=== PATIENT | male | born 1960 | race Caucasian/White ===

== ENCOUNTER 2021-01-07 15:44 | Emergency (ER) | payer OTHER, SELFPAY ==
--- NOTE | 2021-01-07 16:00 | ECG_ITS ---
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/store/NU/[id number] f
--- NOTE | 2021-01-07 16:00 | XR_ITS ---
WS: [id number] XR chest 1V portable [id number] REASON FOR EXAM: chest pain FINDINGS: Moderate tortuosity of the thoracic aorta without aneurysmal dilatation. Normal heart size. Calcified granulomatous disease in both hemithoraces. No acute pulmonary parenchymal or pleural abnor mality. Moderate degenerative changes in the mid and lower thoracic spine. XR/XR chest 1V portable [id number] IMPRESSION: No acute chest abnormality.
[2021-01-07 16:36] VITALS: BMI 28.5
[2021-01-07 17:29] LABS: Basophils % 0.2 %; Eosinophils % 0.2 %; Hematocrit 24.3 % (42.0-52.0); Hemoglobin 7.6 g/dL (11.7-16.6); Lymphocytes % 22.2 %; Mean Corpuscular HGB Conc 31.3 g/dL (30.0-36.0); Mean Corpuscular Hemoglobin 26.9 pg (28.0-34.0); Mean Corpuscular Volume 85.9 fL (80-94); Mean Platelet Volume 11.4 fL (7.4-10.4); Monocytes # 0.8 10^3/uL (0.2-0.9); Monocytes % 17.1 %; Neutrophils # 2.75 10^3/uL (1.8-7.7); Neutrophils % 58.6 %; Nucleated Red Blood Cells # 0.1 /100WBC; Nucleated Red Blood Cells % 2.3 %; Platelet Count 252 10^3/cmm (130-400); Red Blood Count 2.83 10^6/uL (4.1-5.3); Red Cell Distribution Width 13.9 % (12.1-15.1); White Blood Count 4.7 10^3/uL (4.0-10.0)
[2021-01-07 17:41] LABS: Alanine Aminotransferase 34 U/L (0-41); Albumin Level 3.9 g/dL (3.5-5.2); Alkaline Phosphatase 94 IU/L (40-130); Anion Gap 18.5 (5-19); Aspartate Amino Transferase 38 U/L (0-40); Blood Urea Nitrogen 41 mg/dL (8-23); Calcium 8.3 mg/dL (8.5-10.5); Carbon Dioxide 23 mmol/L (22-29); Chloride 100 mmol/L (98-107); Creatinine Clr Calc Pharmacy 70.5513; Globulin 2.7 g/dL (1.3-4.6); Glomerular Filtration Rate 55.9 mL/min (90-130); Glucose 257 mg/dL (65-115); Osmolality Calculated 303 mOsm/kg (285-295); Potassium 4.5 mmol/L (3.5-5.1); Sodium 137 mmol/L (136-145); Total Bilirubin 0.5 mg/dL (0.15-1.2); Total Protein 6.6 g/dL (6.6-8.7)
--- NOTE | 2021-01-07 18:00 | ECG_ITS ---
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 Measurements Intervals [place] Rate: 97 P: 56 MN: 141 QRS: 43 QRSD: 113 T: -59 QT: 353 QTc: 450 Interpretive Statements SINUS RHYTHM WITH OCCASIONAL ECTOPIC PREMATURE COMPLEXES LATERAL MYOCARDIAL INFARCTION [40+ ms Q WAVE AND/OR ST/T ABNORMALITY IN I/aVL/V5/V6], OF INDETERMINATE AGE INFERIOR MYOCARDIAL INFARCTION [40+ ms Q WAVE AND/OR ST/T ABNORMALITY IN II/aVF], OF INDETERMINATE AGE Compared to ECG 01/07/2021 16:54:23 Short MN interval no longer present Myocardial infarct finding still present Electronically Signed On 01-11-2021 0:40:09 CDT by Cesia Batres M.D. [id number]
[2021-01-07 18:34] LABS: Troponin(5th) Baseline 2110 ng/L (0-15)
[2021-01-07 19:24] VITALS: BP 108/72; PULSE 101; RESP 15; O2SAT 99
--- NOTE | 2021-01-07 19:29 | CTR_ITS ---
PROCEDURE INFORMATION: Exam: CTA Chest With Contrast Exam date and time: 01/07/2021 7:29 PM Age: 60 years old Clinical indication: Shortness of breath; Additional info: Dyspnea, trop elevated TECHNIQUE: Imaging protocol: Computed tomographic angiography of the chest with contrast. 3D rendering (Not supervised by radiologist): MIP and/or 3D reconstructed images were created by the technologist. Radiation optimization: All CT scans at this facility use at least one of these dose optimization techniques: automated exposure control; mA and/or kV adjustment per patient size (includes targeted exams where dose is matched to clinical indication); or iterative reconstruction. Contrast material: VISI 320; Contrast volume: 76 ml; Contrast route: INTRAVENOUS (IV); COMPARISON: CR XR chest 1V portable [id number] 01/07/2021 4:02 PM RADIATION DOSE METRICS: Total DLP (mGy-cm): 1163.27 FINDINGS: Pulmonary arteries: Normal. No pulmonary emboli. Aorta: Unremarkable. No aortic aneurysm. No aortic dissection. Lungs: Unremarkable. No consolidation. No masses. Pleural spaces: Moderate bilateral pleural effusions. Heart: Cardiomegaly. Coronary artery atherosclerotic calcifications. Lymph nodes: Unremarkable. No enlarged lymph nodes. Spleen: Splenic calcified granulomas partially visualized. Intraperitoneal space: Small amount of ascites seen in the upper abdomen. Bones/joints: Unremarkable. No acute fracture. Soft tissues: Unremarkable. CT/CT angio chest PE protcl [id number] IMPRESSION: 1. Negative for pulmonary embolus. 2. Moderate bilateral pleural effusions. 3. Cardiomegaly. 4. Coronary artery atherosclerotic calcifications. 5. Small amount of ascites seen in the upper abdomen. 6. Splenic calcified granulomas partially visualized. Radiation Dose CTDIVOL = (mGy): DLP = 1163.27 (mGy-cm)
[2021-01-07] MEDS: heparin 5,000 unit/mL INJ 1 mL 4000 UNIT IVP (19:38)
[2021-01-07] MEDS: iodixanol 320 mg/mL 100mL Btl IV (19:49)
[2021-01-07 20:00] LABS: D Dimer 3.19 ug/mIFEU (0-0.59)
[2021-01-07] MEDS: clopidogrel 300 mg Tablet PO (20:00)
[2021-01-07] MEDS: aspirin 81 mg Chew Tablet 324 MG PO (20:00)
[2021-01-07 20:14] LABS: NT Pro B Type Natriuretic Pept 11404 pg/mL (0-125)
[2021-01-07 20:33] LABS: SARS Covid-2 Antigen Negative (Negative)
[2021-01-07 20:38] LABS: Troponin 5 2HR 2152 ng/L (0-15); Troponin 5 2HR Delta 42 ABS# (0-10)
[2021-01-07] MEDS: FUROsemide 10 mg/mL SDV 4mL 20 MG IVP (20:50)
[2021-01-07] MEDS: heparin drip 25,000 UNIT/500 ML PREMIX 27 UNIT IV (21:38)
[2021-01-07 21:52] VITALS: BP 115/73; PULSE 98; RESP 15; O2SAT 97
--- NOTE | 2021-01-07 22:00 | ECG_ITS ---
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 Measurements Intervals [place] Rate: 99 P: 62 DC: 147 QRS: 46 QRSD: 112 T: -71 QT: 348 QTc: 447 Interpretive Statements SINUS RHYTHM WITH OCCASIONAL ECTOPIC PREMATURE COMPLEXES PROBABLE LATERAL MYOCARDIAL INFARCTION [35 ms Q WAVE IN I/aVL/V5/V6], OF INDETERMINATE AGE INFERIOR MYOCARDIAL INFARCTION [40+ ms Q WAVE AND/OR ST/T ABNORMALITY IN II/aVF], OF INDETERMINATE AGE Compared to ECG 01/07/2021 19:05:06 No significant changes Electronically Signed On 01-11-2021 0:39:34 CDT by Cesia Batres M.D. [id number]
--- NOTE | 2021-01-07 22:19 | ED_ITS ---
HPI - SOB/Dyspnea General: Chief Complaint: Shortness of Breath/Dyspnea Stated Complaint: CP, SOB - SENT BY DR BURNETT Time Seen by Provider: 01/07/21 18:39 History of Present Illness: HPI Narrative: The patient is a 60-year-old male with past medical history diabetes and no cardiac history. He had a significant weight in the waiting room due to the increase in Covid volume. Labs in the waiting room showed initial troponin 2110 and he was placed in a room. The patient is a 60-year-old male with diabetes who comes to the ER complaining of shortness of breath on exertion. He says for the past 4 days he has been having shortness of breath on exertion and pain in his neck, left shoulder, and left arm. He denies any chest pain heaviness, squeezing, tightness, heartburn at all. He says he thinks 4 days ago he might of had some kind of a heartburn feel ing but other than that nothing in his chest. EKG shows sinus rhythm with no ST changes. Likely NSTEMI. He denies any previous cardiac history. MD elicited complaint: shortness of breath Pertinent past history: diabetes Onset (ago): day(s) (4) Context: occurred during exertion Timing: intermittent Severity: moderate Exacerbating factors: exertion Relieving factors: rest Known history of: diabetes Associated symptoms: Reports no associated symptoms; Deny abdominal pain, chest pain, dizziness, extremity pain, orthopnea, palpitations or polyuria Review of Systems General: Reports: 10 or more systems reviewed and unremarkable except in HPI and below Const: Denies: fatigue Eyes: Denies: change in vision, blurry vision or eye redness ENMT: Denies: throat pain, swelling of lips/tongue, ear or mastoid pain or nasal congestion Card: Denies: chest pain, palpitations, irregular heart rhythm, edema, dyspnea on exertion or orthopnea Resp: Reports: other (Dyspnea on exertion); Denies: dyspnea, productive cough or non-productive cough GI: Denies: abdominal pain, diarrhea or GI cramping : Denies: flank pain, urinary frequency or urinary urgency Musc: Denies: neck pain, back pain, extremity pain, joint pain, joint redness, limited range of motion or muscle weakness Skin/Breast: Denies: rash, pruritus, erythema, skin pain or skin tenderness Neuro: Denies: headache(s), numbness in extremities, weakness in extremities, sensory changes, difficulty walking, dizziness, confusion or Slurred speech present Psych: Denies: anxiety or depression Endo: Denies: polyuria All/Imm: Denies: urticaria, throat swelling or tongue swelling Physical Exam Const: COMMON NORMALS: no acute distress, average body habitus, patient oriented x3, no limitations, healthy appearing, alert and well nourished GENERAL APPEARANCE: cooperative, comfortable, well kempt and well developed ORIENTATION/CONSCIOUSNESS: Yes awake, Yes oriented to person, Yes oriented to place and Yes oriented to time HENMT: COMMON NORMALS: normocephalic, external ears normal and Normal external nose present HEAD & SCALP: normal to inspection and normocephalic NOSE: Normal external nose present EXTERNAL EAR: Yes external ears normal MOUTH: Normal oral and palatal mucosa present THROAT: posterior oropharynx normal Eye: COMMON NORMALS: Equal, round and reactive pupils present and EOMs intact bilaterally GENERAL EYE: appearance normal, both eyes and all related structures PUPIL: Yes Equal, round and reactive pupils present Neck/C-Spine: COMMON NORMALS: full ROM, no lymphadenopathy, no meningeal signs and no JVD GENERAL: Yes normal visual inspection Lymph: LYMPHATIC: no lymphadenopathy noted Chest: COMMONS NORMALS: normal inspection of the chest and normal palpation of entire chest wall Resp: COMMON NORMALS: normal respiratory effort, No retractions, No use of accessory muscles, clear to auscultation bilaterally and percussion normal EFFORT & INSPECTION: Yes able to speak in complete sentences AUSCULTATION: clear to auscultation bilaterally PERCUSSION: percussion normal Cardio: COMMON NORMALS: no JVD, regular rate, regular rhythm, S1 normal heart sound present, S2 normal heart sound present and Peripheral pulses 2+ throughout RATE: regular rate RHYTHM: regular rhythm HEART SOUNDS: S1 normal heart sound present and S2 normal heart sound present PERIPHERAL PULSES: Peripheral pulses 2+ throughout GI: COMMON NORMALS: Normal to inspection, nondistended, normoactive bowel sounds present, Soft to palpation, non-tender and no masses INSPECTION: Yes normal to inspection PALPATION: Yes Soft to palpation : COMMON NORMALS: Yes no CVA tenderness BLADDER/KIDNEY EXAM: Yes no CVA tenderness Back/Pelvis: COMMON NORMALS: no CVA tenderness, thoracic and lumbar spine normal to inspection, no thoracic nor lumbar tenderness and thoraco-lumbar ROM normal Extremity: COMMON NORMALS: normal to inspection, full ROM, capillary refill normal, no joint enlargement and no pedal edema GENERAL: Yes normal exam except as noted Neuro: COMMON NORMALS: patient oriented x3, CN's II-XII intact bilaterally, moves all extremities, no focal motor deficits, no sensory deficits noted and gait normal SENSORIUM/ORIENTATION: Yes alert, Yes oriented to person, Yes oriented to place and Yes oriented to time MENINGEAL SIGNS: Yes no meningeal signs Psych: COMMON NORMALS: mental status grossly normal, Normal thought process present, cooperative, normal affect and speech normal APPEARANCE: Yes well kempt ATTITUDE: Yes calm SPEECH: Yes normal speech THOUGHT PROCESS: Normal thought process present Skin: COMMON NORMALS: no rashes or lesions noted GENERAL SKIN EXAM: no rashes or lesions noted Course Vital Signs: Vital signs: Vital Signs Pulse Rate 98 01/07/21 21:52 Respiratory Rate 15 01/07/21 21:52 Blood Pressure 115/73 01/07/21 21:52 Pulse Oximetry 97 01/07/21 21:52 MDM - SOB/Dyspnea MDM Narrative: Medical decision making narrative: Patient comes to the ER complaining of exertional dyspnea. He denies chest pain in the ER and for the past few days however his troponin is elevated to 2110. EKG shows no ST wave changes. 2-hour troponin 44637. Again no ST changes on the EKG at that time. Discussed with Dr. Olivarez who recommended aspirin, Plavix 300, heparin bolus and drip which was administered. Discussed with Dr. Larose who does not accept because we do not have any CSU beds. Attempting to transfer now. Discussed with Dr. Car cardiology at [facility] who accepts to his service. Pt stable for transfer and has no chest pain. Lab Data: Labs: Lab Results 01/07/21 01/07/21 01/07/21 Range/Units 17:10 17:10 17:10 WBC 4.7 (4.0-10.0) 10^3/ uL RBC 2.83 L (4.1-5.3) 10^6/u L Hgb 7.6 L (11.7-16.6) g/dL Hct 24.3 L (42.0-52.0) % MCV 85.9 (80-94) fL MCH 26.9 L (28.0-34.0) pg MCHC 31.3 (30.0-36.0) g/dL RDW 13.9 (12.1-15.1) % Plt Count 252 (130-400) 10^3/c mm MPV 11.4 H (7.4-10.4) fL Neut % (Auto) 58.6 % Lymph % (Auto) 22.2 % [place] % (Auto) 17.1 % Eos % (Auto) 0.2 % Baso % (Auto) 0.2 % Neut # (Auto) 2.75 (1.8-7.7) 10^3/u L Lymph # (Auto) 1.0 (0.8-4.8) 10^3/u L [place] # (Auto) 0.8 (0.2-0.9) 10^3/u L Eos # (Auto) 0.0 (0.0-0.8) 10^3/u L Baso # (Auto) 0.0 (0.0-0.1) 10^3/u L Nucleated RBC % (a uto) 2.3 % Nucleated RBCs # 0.1 /100WBC D-Dimer (0-0.59) ug/mIFE U Sodium 137 (136-145) mmol/L Potassium 4.5 (3.5-5.1) mmol/L Chloride 100 (98-107) mmol/L Carbon Dioxide 23 (22-29) mmol/L Anion Gap 18.5 (5-19) BUN 41 H (8-23) mg/dL Creatinine 1.3 H (0.7-1.2) mg/dL GFR Calculation 55.9 L (90-130) mL/min Glucose 257 H (65-115) mg/dL Calculated Osmolal ity 303 H (285-295) mOsm/k g Calcium 8.3 L (8.5-10.5) mg/dL Total Bilirubin 0.5 (0.15-1.2) mg/dL AST 38 (0-40) U/L ALT 34 (0-41) U/L Alkaline Phosphata se 94 (40-130) IU/L Troponin T Baselin e 2110 H* (0-15) ng/L Troponin T 120 Min cocopah (0-15) ng/L Delta Troponin T (0-10) ABS# NT-Pro-B Natriuret Pep (0-125) pg/mL Total Protein 6.6 (6.6-8.7) g/dL Albumin 3.9 (3.5-5.2) g/dL Globulin 2.7 (1.3-4.6) g/dL SARS-CoV-2 Ag (Rap id) (Negative) Blood Type Rho(D) Type Antibody Screen 01/07/21 01/07/21 01/07/21 Range/Units 17:10 19:20 19:40 WBC (4.0-10.0) 10^3/ uL RBC (4.1-5.3) 10^6/u L Hgb (11.7-16.6) g/dL Hct (42.0-52.0) % MCV (80-94) fL MCH (28.0-34.0) pg MCHC (30.0-36.0) g/dL RDW (12.1-15.1) % Plt Count (130-400) 10^3/c mm MPV (7.4-10.4) fL Neut % (Auto) % Lymph % (Auto) % [place] % (Auto) % Eos % (Auto) % Baso % (Auto) % Neut # (Auto) (1.8-7.7) 10^3/u L Lymph # (Auto) (0.8-4.8) 10^3/u L [place] # (Auto) (0.2-0.9) 10^3/u L Eos # (Auto) (0.0-0.8) 10^3/u L Baso # (Auto) (0.0-0.1) 10^3/u L Nucleated RBC % (a uto) % Nucleated RBCs # /100WBC D-Dimer 3.19 H (0-0.59) ug/mIFE U Sodium (136-145) mmol/L Potassium (3.5-5.1) mmol/L Chloride (98-107) mmol/L Carbon Dioxide (22-29) mmol/L Anion Gap (5-19) BUN (8-23) mg/dL Creatinine (0.7-1.2) mg/dL GFR Calculation (90-130) mL/min Glucose (65-115) mg/dL Calculated Osmolal ity (285-295) mOsm/k g Calcium (8.5-10.5) mg/dL Total Bilirubin (0.15-1.2) mg/dL AST (0-40) U/L ALT (0-41) U/L Alkaline Phosphata se (40-130) IU/L Troponin T Baselin e (0-15) ng/L Troponin T 120 Min cocopah 2152 H (0-15) ng/L Delta Troponin T 42 H* (0-10) ABS# NT-Pro-B Natriuret Pep 88515 H (0-125) pg/mL Total Protein (6.6-8.7) g/dL Albumin (3.5-5.2) g/dL Globulin (1.3-4.6) g/dL SARS-CoV-2 Ag (Rap id) (Negative) Blood Type Rho(D) Type Antibody Screen 01/07/21 01/07/21 Range/Units 19:40 20:00 WBC (4.0-10.0) 10^3/ uL RBC (4.1-5.3) 10^6/u L Hgb (11.7-16.6) g/dL Hct (42.0-52.0) % MCV (80-94) fL MCH (28.0-34.0) pg MCHC (30.0-36.0) g/dL RDW (12.1-15.1) % Plt Count (130-400) 10^3/c mm MPV (7.4-10.4) fL Neut % (Auto) % Lymph % (Auto) % [place] % (Auto) % Eos % (Auto) % Baso % (Auto) % Neut # (Auto) (1.8-7.7) 10^3/u L Lymph # (Auto) (0.8-4.8) 10^3/u L [place] # (Auto) (0.2-0.9) 10^3/u L Eos # (Auto) (0.0-0.8) 10^3/u L Baso # (Auto) (0.0-0.1) 10^3/u L Nucleated RBC % (a uto) % Nucleated RBCs # /100WBC D-Dimer (0-0.59) ug/mIFE U Sodium (136-145) mmol/L Potassium (3.5-5.1) mmol/L Chloride (98-107) mmol/L Carbon Dioxide (22-29) mmol/L Anion Gap (5-19) BUN (8-23) mg/dL Creatinine (0.7-1.2) mg/dL GFR Calculation (90-130) mL/min Glucose (65-115) mg/dL Calculated Osmolal ity (285-295) mOsm/k g Calcium (8.5-10.5) mg/dL Total Bilirubin (0.15-1.2) mg/dL AST (0-40) U/L ALT (0-41) U/L Alkaline Phosphata se (40-130) IU/L Troponin T Baselin e (0-15) ng/L Troponin T 120 Min cocopah (0-15) ng/L Delta Troponin T (0-10) ABS# NT-Pro-B Natriuret Pep (0-125) pg/mL Total Protein (6.6-8.7) g/dL Albumin (3.5-5.2) g/dL Globulin (1.3-4.6) g/dL SARS-CoV-2 Ag (Rap id) Negative (Negative) Blood Type A Negative Rho(D) Type Negative / 0 Antibody Screen Negative Discharge Plan Discharge Clinical Impression: Non-ST elevation SD (NSTEMI) Condition: Stable Prescriptions: No Action Aspir-81 81 mg Tablet,Delayed Release (Dr/Ec) 81 mg PO DAILY RF: 0 simvastatin 20 mg tablet 20 mg PO DAILY RF: 0 metformin 1,000 mg tablet 1,000 mg PO BID RF: 0 glipizide 5 mg tablet 5 mg PO DAILY RF: 0 Referrals: Ilda Burnett [Primary Care Provider] - Coding Level of Care Code ED Chief Writer for [employer] Fwd Exam Comprehensive
[2021-01-07 22:40] VITALS: BP 98/71; PULSE 93; RESP 19; O2SAT 97
[2021-01-08 00:26] VITALS: BP 106/68; PULSE 90; RESP 21; O2SAT 96
[2021-01-08 00:53] LABS: Troponin 5 6HR 2304 ng/L (0-15); Troponin 5 6HR Delta 152 ng/L (0-12)
[2021-01-08 01:54] VITALS: BP 96/71; PULSE 98; RESP 23; O2SAT 98
[2021-01-08 03:17] VITALS: BP 96/67; PULSE 102; RESP 18; O2SAT 99
[2021-01-08 03:41] VITALS: BP 96/67; PULSE 101; RESP 23; O2SAT 97
[2021-01-08 03:59] LABS: Partial Thromboplastin Time 59.9 SECONDS (23.9-36.7)
[2021-01-08 04:53] VITALS: BP 94/64; PULSE 100; O2SAT 98
== END 2021-01-08 04:55 ==
PROVIDERS: Emergency Medicine; Physician Assistant; Emergency Provider Family Medicine; PCP Nurse Practitioner Family
DX: I21.4 Non-ST elevation (NSTEMI) myocardial infarction (principal); E11.9 Type 2 diabetes mellitus without complications; Z79.82 Long term (current) use of aspirin; Z79.84 Long term (current) use of oral hypoglycemic drugs
CPT/HCPCS: 36415; 71045; 71275; 80053; 83880; 84484; 85025; 85378; 85730; 86850; 86900; 87426; 93005; 96365; 96366; 96375; 99285; J1644; J1940; Q9967

== ENCOUNTER 2021-03-22 07:40 | Inpatient (IN) | payer OTHER, SELFPAY ==
[2021-03-22] VITALS (32 sets, daily range): BP systolic 72–112; BP diastolic 49–74; PULSE 75–124; RESP 8–27; TEMP 36.4–36.7; O2SAT 79–100; BMI 27.8
--- NOTE | 2021-03-22 07:50 | XR_ITS ---
WS: [id number] PORTABLE CHEST HISTORY: dyspnea/cough COMPARISON: 01/07/2021 Lordotic rotated positioning of the thorax. Mediastinum appears wide but this is due to positioning. Lungs are clear. No pleural effusion or pneumothorax. Cardiac size: Normal. Mediastinum/Aorta: Normal mediastinum. No osseous abnormality seen. XR/XR chest 1V portable [id number] IMPRESSION: Unremarkable portable chest.
--- NOTE | 2021-03-22 07:50 | ECG_ITS ---
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 Measurements Intervals [place] Rate: 72 P: 52 [place]: 158 QRS: 42 QRSD: 116 T: 167 QT: 404 QTc: 445 Interpretive Statements SINUS RHYTHM INFERIOR MYOCARDIAL INFARCTION , PROBABLY OLD [40+ ms Q WAVE AND/OR ST/T ABNORMALITY IN II/aVF] ANTEROLATERAL MYOCARDIAL INFARCTION , OF INDETERMINATE AGE [40+ ms Q WAVE IN I/aVL/V3-V6] Compared to ECG 01/07/2021 22:00:57 No significant changes Electronically Signed On 03-22-2021 14:24:14 CDT by Allan Medina M.D. [id number]
--- NOTE | 2021-03-22 08:08 | ED_ITS ---
HPI - SOB/Dyspnea General: Chief Complaint: Shortness of Breath/Dyspnea Stated Complaint: SOB when laying down Time Seen by Provider: 03/22/21 07:44 History of Present Illness: HPI Narrative: 61-year-old male presents emergency room complaining of orthopnea as well as shortness of breath with nearly any level of exertion. Patient has a known ischemic cardiomyopathy with an ejection fraction he was told around 15%. He had an NSTEMI earlier this year was tr ansferred to another facility due to lack of available beds here. He sees a access services representative in [place] and they are considering transplant. He is not had any chest pain. He is not really noticed any swelling of his extremities. Patient does have a LifeVest on. He has not seen a access services representative locally. MD elicited complaint: shortness of breath Pertinent past history: congestive heart failure (Ischemic cardiomyopathy) Onset (ago): day(s) Context: occurred during exertion Timing: intermittent Severity: moderate Exacerbating factors: lying flat, exertion and movement Relieving factors: rest and upright position Known history of: congestive heart failure Associated symptoms: Deny abdominal pain, chest congestion, chest pain, cough, diaphoresis, dizziness, extremity pain, fever(s), hemoptysis, lightheadedness, myalgias, nausea, orthopnea, palpitations, paresthesias, polydipsia, polyuria, rash, sense of impending doom, syncope, vomiting or other Treatment prior to arrival: none Review of Systems Const: Denies: fever(s) or diaphoresis Card: Denies: chest pain, palpitations, lightheadedness, syncope or orthopnea Resp: Denies: hemoptysis or chest congestion GI: Denies: abdominal pain, nausea or vomiting Musc: Denies: extremity pain Neuro: Denies: dizziness Endo: Denies: polyuria or polydipsia PFS ED PFSH: Medical History (Updated 03/27/21 @ 14:13 by Michael Frye DO) Amputated toe of right foot CAD (coronary artery disease) CHF exacerbation Diabetes mellitus Hyperlipidemia Ischemic cardiomyopathy Surgical History (Updated 03/22/21 @ 17:39 by Cesia Batres MD) H/O umbilical hernia repair History of appendectomy S/P LASIK surgery of both eyes Family History (Updated 03/22/21 @ 17:41 by Cesia Batres MD) Mother Hypertension Social History (Updated 03/22/21 @ 17:40 by Cesia Batres MD) Smoking and tobacco status: never smoked Alcohol intake: never Household members: spouse Marital status: Physical Exam Const: COMMON NORMALS: no acute distress GENERAL APPEARANCE: cooperative and comfortable ORIENTATION/CONSCIOUSNESS: Yes awake, Yes oriented to person, Yes oriented to place and Yes oriented to time HENMT: COMMON NORMALS: normocephalic, atraumatic and hearing grossly normal bilaterally HEAD & SCALP: normocephalic and atraumatic Neck/C-Spine: COMMON NORMALS: no JVD Lymph: LYMPHATIC: no lymphadenopathy noted and no lymphedema noted Resp: EFFORT & INSPECTION: Yes uses accessory muscles AUSCULTATION: crackles and diminished lung sounds Cardio: COMMON NORMALS: no JVD, regular rate, regular rhythm and No murmurs present (Cardio) RATE: regular rate RHYTHM: regular rhythm GI: COMMON NORMALS: Soft to palpation and No hepatosplenomegaly present AUSCULTATION: Yes normoactive bowel sounds PALPATION: Yes Soft to palpation, No Tenderness to palpation present (GI), No Guarding due to palpation present (GI) and Yes No hepatosplenomegaly present Extremity: GENERAL: Yes edema (trace) Neuro: SENSORIUM/ORIENTATION: Yes oriented to person, Yes oriented to place and Yes oriented to time Skin: COMMON NORMALS: no rashes or lesions noted GENERAL SKIN EXAM: no rashes or lesions noted Course Vital Signs: Vital signs: Vital Signs Temperature 97.8 F 03/23/21 20:00 Pulse Rate 104 H 03/23/21 20:00 Respiratory Rate 16 03/23/21 20:00 Blood Pressure 97/65 03/23/21 20:00 Pulse Oximetry 97 03/23/21 19:45 MDM - SOB/Dyspnea MDM Narrative: Medical decision making narrative: Patient has significant congestive heart failure with a skin history of ischemic cardiomyopathy see he also has an acute kidney injury discussed with hospitalist will go admit orders written to the ICU. Lab Data: Labs: Lab Results 03/22/21 03/22/21 03/22/21 08:20 08:20 08:20 WBC 7.9 10^3/uL 10^3/ uL (4.0-10.0) RBC 4.24 10^6/uL 10^6 /uL (4.1-5.3) Hgb 12.2 g/dL g/dL (11.7-16.6) Hct 39.2 % L % (42.0-52.0) MCV 92.5 fl fl (80-94) MCH 28.8 pg pg (28.0-34.0) MCHC 31.1 g/dL g/dL (30.0-36.0) RDW 15.9 % H % (12.1-15.1) Plt Count 192 10^3/cmm 10^3 /cmm (130-400) MPV 11.1 fL H fL (7.4-10.4) Neut % (Auto) 73.0 % % Lymph % (Auto) 16.3 % % [place] % (Auto) 8.6 % % Eos % (Auto) 0.5 % % Baso % (Auto) 0.6 % % Neut # (Auto) 5.74 10^3/uL 10^3 /uL (1.8-7.7) Lymph # (Auto) 1.3 10^3/uL 10^3/ uL (0.8-4.8) [place] # (Auto) 0.7 10^3/uL 10^3/ uL (0.2-0.9) Eos # (Auto) 0.0 10^3/uL 10^3/ uL (0.0-0.8) Baso # (Auto) 0.1 10^3/uL 10^3/ uL (0.0-0.1) Nucleated RBC % (a uto) 0 % % Nucleated RBCs # 0.0 /100WBC /100W BC Sodium 137 mmol/L mmol/L (136-145) Potassium 5.2 mmol/L H mmol /L (3.5-5.1) Chloride 96 mmol/L L mmol/ L (98-107) Carbon Dioxide 24 mmol/L mmol/L (22-29) Anion Gap 22.2 H (5-19) BUN 55 mg/dL H mg/dL (8-23) Creatinine 3.4 mg/dL H mg/dL (0.7-1.2) GFR Calculation 18.4 mL/min L mL/ min (90-130) Glucose 159 mg/dL H mg/dL (65-115) Calculated Osmolal ity 302 mOsm/kg H mOs m/kg (285-295) Calcium 9.7 mg/dL mg/dL (8.5-10.5) Total Bilirubin 0.5 mg/dL mg/dL (0.15-1.2) AST 16 U/L U/L (0-40) ALT 9 U/L U/L (0-41) Alkaline Phosphata se 95 IU/L IU/L (40-130) Troponin T Baselin e 4125 ng/L H* ng/L (0-15) Troponin T 120 Min rosebud Delta Troponin T Troponin T Hi Sens 6Hr Troponin T Hi Sens 6Hr Delta NT-Pro-B Natriuret Pep 67988 pg/mL H pg/ mL (0-125) Total Protein 7.3 g/dL g/dL (6.6-8.7) Albumin 4.5 g/dL g/dL (3.5-5.2) Globulin 2.8 g/dL g/dL (1.3-4.6) Procalcitonin 03/22/21 03/22/21 03/22/21 10:27 14:22 14:22 WBC RBC Hgb Hct MCV MCH MCHC RDW Plt Count MPV Neut % (Auto) Lymph % (Auto) [place] % (Auto) Eos % (Auto) Baso % (Auto) Neut # (Auto) Lymph # (Auto) [place] # (Auto) Eos # (Auto) Baso # (Auto) Nucleated RBC % (a uto) Nucleated RBCs # Sodium Potassium Chloride Carbon Dioxide Anion Gap BUN Creatinine GFR Calculation Glucose Calculated Osmolal ity Calcium Total Bilirubin AST ALT Alkaline Phosphata se Troponin T Baselin e Troponin T 120 Min rosebud 3042 ng/L H ng/L (0-15) Delta Troponin T -1083 ABS# L ABS# (0-10) Troponin T Hi Sens 6Hr 3107 ng/L H ng/L (0-15) Troponin T Hi Sens 6Hr Delta -1018 ng/L L ng/L (0-12) NT-Pro-B Natriuret Pep Total Protein Albumin Globulin Procalcitonin 0.11 ng/mL ng/mL (0-0.5) Discharge Plan Discharge Patient Disposition: Admitted As Inpatient Admit Provider: Berkley Ruano Clinical Impression: Ischemic cardiomyopathy, TJ (acute kidney injury), CHF exacerbation, CAD (coronary artery disease), Diabetes mellitus Condition: Stable Discharge Diet: Cardiac Discharge Activity: Bedrest Coding Level of Care Code ED Engineering Aide for David Rascon
[2021-03-22 08:38] LABS: Basophils # 0.1 10^3/uL (0.0-0.1); Basophils % 0.6 %; Eosinophils % 0.5 %; Hematocrit 39.2 % (42.0-52.0); Hemoglobin 12.2 g/dL (11.7-16.6); Lymphocytes # 1.3 10^3/uL (0.8-4.8); Lymphocytes % 16.3 %; Mean Corpuscular HGB Conc 31.1 g/dL (30.0-36.0); Mean Corpuscular Hemoglobin 28.8 pg (28.0-34.0); Mean Corpuscular Volume 92.5 fl (80-94); Mean Platelet Volume 11.1 fL (7.4-10.4); Monocytes # 0.7 10^3/uL (0.2-0.9); Monocytes % 8.6 %; Neutrophils # 5.74 10^3/uL (1.8-7.7); Nucleated Red Blood Cells % 0 %; Platelet Count 192 10^3/cmm (130-400); Red Blood Count 4.24 10^6/uL (4.1-5.3); Red Cell Distribution Width 15.9 % (12.1-15.1); White Blood Count 7.9 10^3/uL (4.0-10.0)
--- NOTE | 2021-03-22 08:38 | PC.NURSE ---
Patient placed on cardiac monitoring upon arrival in room.
[2021-03-22 09:16] LABS: Troponin(5th) Baseline 4125 ng/L (0-15)
[2021-03-22 09:27] LABS: Alanine Aminotransferase 9 U/L (0-41); Albumin Level 4.5 g/dL (3.5-5.2); Alkaline Phosphatase 95 IU/L (40-130); Anion Gap 22.2 (5-19); Aspartate Amino Transferase 16 U/L (0-40); Blood Urea Nitrogen 55 mg/dL (8-23); Calcium 9.7 mg/dL (8.5-10.5); Carbon Dioxide 24 mmol/L (22-29); Chloride 96 mmol/L (98-107); Creatinine Clr Calc Pharmacy 26.3443; Globulin 2.8 g/dL (1.3-4.6); Glomerular Filtration Rate 18.4 mL/min (90-130); Glucose 159 mg/dL (65-115); Osmolality Calculated 302 mOsm/kg (285-295); Potassium 5.2 mmol/L (3.5-5.1); Sodium 137 mmol/L (136-145); Total Bilirubin 0.5 mg/dL (0.15-1.2); Total Protein 7.3 g/dL (6.6-8.7)
[2021-03-22] MEDS: aspirin 81 mg Chew Tablet 324 MG PO (09:35)
--- NOTE | 2021-03-22 09:50 | ECG_ITS ---
[facility] Test Date: 2021-03-22 Pat Name: Luis M Browne Department: Room: Gender: Male In House Counsel: : 1960 Requested By: Michael Alba Order Number: [id number] Thu MD: Allan Medina M.D. Measurements Intervals [place] Rate: 80 P: 55 MN: 152 QRS: 52 QRSD: 120 T: 202 QT: 390 QTc: 453 Interpretive Statements SINUS RHYTHM INFERIOR MYOCARDIAL INFARCTION , OF INDETERMINATE AGE [40+ ms Q WAVE AND/OR ST/T ABNORMALITY IN II/aVF] ANTEROLATERAL MYOCARDIAL INFARCTION , OF INDETERMINATE AGE [40+ ms Q WAVE IN I/aVL/V3-V6] Compared to ECG 03/22/2021 08:27:07 No significant changes Electronically Signed On 03-22-2021 15:15:20 CDT by Allan Medina M.D. [id number]
[2021-03-22 09:53] LABS: NT Pro B Type Natriuretic Pept 40686 pg/mL (0-125)
[2021-03-22 11:06] LABS: Troponin 5 2HR 3042 ng/L (0-15)
--- NOTE | 2021-03-22 12:10 | PC.PHAR ---
PT STATES HE TAKES CARE OF HIS MEDICATIONS-PT STATES HE THINKS HE MAY HAVE BEEN TAKING ZOCOR 20MG FILLED ON 03/08/21 AND LIPITOR 80MG FILLED ON 01/21/21 90D/S-PT STATES HE KNOWS HE FOR SURE HAS BEEN TAKING THE ZOCOR-PT STATES HE IS STILL TAKING GLIPIZIDE LAST FILLED ON 10/12/20 90D/S AND STATES HE IS STILL TAKING METFORMIN LAST FILLED ON 11/16/20 90D/S-NOTES ARE MADE IN THE PHARMACY COMMENTS-
--- NOTE | 2021-03-22 13:27 | PM.CONSULT ---
Providers/Reason For Consult Consulting Physician/Specialty*: Dr. Batres , cardiology Reason for Consult*: Shortness of breath, congestive heart failure history of CAD Primary Care Provider: Ilda Darnell History of Present Illness History of Present Illness Luis M Browne is a 61 year old male with complex cardiac history. History was obtained from patient and his as well as from records obtained from [facility]. Patient has past medical history of hyperlipidemia, [id number] type 2 diabetes mellitus diagnosed in his 30s, history of diabetic foot wound s/p right big toe amputation who presented initially on 07 January with elevated BNP and troponin and some ST-T wave changes in inferolateral leads (0.[address] elevation in inferior leads and ST depression and T wave inversion in lateral leads. He was loaded with aspirin Plavix and started on heparin drip and transferred to [facility]. His proBNP was 14,476 and troponin 2595, hemoglobin 7.9, anion gap 20, creatinine 1.8. He was treated for recent inferior IN, DKA and received 2 units of packed red blood cells during hospitalization. He underwent left heart cath that showed three-vessel disease and echo with left ankle ejection fraction of 50 to 20%. He was evaluated by CT surgery and cardiology at [facility] as he was out of network at [facility]. He was thought not to be a candidate for CABG and PCI was thought to be high risk. He was eventually transferred [facility] on 14 January for advanced heart failure management and stayed there till (01/21/21). He was started on Lasix 80 mg twice a day and spironolactone 12.5 mg twice a day. He was evaluated by Dr. Knox. CT surgery was consulted who recommended consulting interventional cardiology. Repeat echocardiogram showed severely decreased left ventricle systolic function with moderate to severe mitral valve regurgitation. He underwent loop repeat left heart cath on 20 January however PCI/coronary stenting was not possible. He was discharged home on LifeVest. He was also started on metoprolol succinate, spironolactone, losartan. He had a follow-up appointment he had follow-up appointment with his client support representative last month and is due for another televisit later this month. He is scheduled for follow-up echocardiogram in May. He was doing well and his dose of Bumex 2 mg daily was decreased to 1 mg daily and held for few days. Last week he had shortness of breath with some left arm discomfort and he was placed on Bumex 2 mg daily again. He presented today with 9-10 pound weight gain as per his home scale, orthopnea and paroxysmal nocturnal dyspnea. Minimal lower extremity swelling. EKG on arrival showed sinus rhythm old inferior myocardial infarction (Q waves in inferior leads with T wave inversion). Anterolateral IN of indeterminate age (ST depression and T wave inversion in I, aVL V5 and V6). Review of Systems General: Reports: 10 or more systems reviewed and unremarkable except in HPI and below Const: Denies: fever(s) or diaphoresis ENMT: Denies: nasal congestion or epistaxis Card: Reports: lightheadedness, dyspnea on exertion and orthopnea; Denies: chest pain, palpitations, syncope or leg pain with exertion Resp: Denies: hemoptysis or chest congestion GI: Denies: abdominal pain, nausea or vomiting : Denies: difficulty urinating, oliguria or hematuria Musc: Denies: extremity pain Neuro: Denies: dizziness Endo: Denies: polyuria or polydipsia [place]/Lymph: Denies: petechiae or purpura Meds/Allergies Home Medications and Allergies Home Medications Medication Instructions Recorded Confirmed Last Taken Type aspirin [Aspir-81] 81 mg PO QAM 01/07/21 03/22/21 03/21/21 History glipizide 5 mg PO QAM 01/07/21 03/22/21 03/21/21 History metformin 1,000 mg PO BID 01/07/21 03/22/21 03/21/21 History simvastatin 20 mg PO DAILY 01/07/21 03/22/21 01/06/21 History acetaminophen [Tylenol] 325 mg PO Q4H PRN 03/22/21 03/22/21 Unknown History atorvastatin 80 mg PO DAILY 03/22/21 03/22/21 Unknown History bumetanide 2 mg PO QAM 03/22/21 03/22/21 03/21/21 History calcium carbonate 500 mg PO Q4H PRN 03/22/21 03/22/21 Unknown History calcium citrate-vitamin D3 1 tab PO DAILY 03/22/21 03/22/21 03/21/21 History [Calcium Citrate + D] clopidogrel 75 mg PO QAM 03/22/21 03/22/21 03/21/21 History dapagliflozin [Farxiga] 10 mg PO QAM 03/22/21 03/22/21 03/21/21 History losartan 25 mg PO QAM 03/22/21 03/22/21 03/21/21 History metoprolol succinate 50 mg PO BEDTIME 03/22/21 03/22/21 03/21/21 History nitroglycerin 0.4 mg SUBLINGUAL Q5M PRN 03/22/21 03/22/21 03/22/21 02:00 History pantoprazole 40 mg PO BID 03/22/21 03/22/21 Unknown History potassium chloride 10 meq PO QAM 03/22/21 03/22/21 03/21/21 History spironolactone 25 mg PO BID 03/22/21 03/22/21 03/21/21 History Allergies Allergy/AdvReac Type Severity Reaction Status Date / Time No Known Allergies Allergy Verified 03/22/21 12:10 PFSH Acute PFSH: Medical History (Updated 03/22/21 @ 21:20 by Cesia Batres MD) Amputated toe of right foot CAD (coronary artery disease) CHF exacerbation Diabetes mellitus Hyperlipidemia Ischemic cardiomyopathy Surgical History (Updated 03/22/21 @ 17:39 by Cesia Batres MD) H/O umbilical hernia repair History of appendectomy S/P LASIK surgery of both eyes Family History (Updated 03/22/21 @ 17:41 by Cesia Batres MD) Mother Hypertension Social History (Updated 03/22/21 @ 17:40 by Cesia Batres MD) Smoking and tobacco status: never smoked Alcohol intake: never Household members: spouse Marital status: Vitals/I&O/Wt Last Vital Signs Temp 97.6 F 03/22/21 07:56 Pulse 77 03/22/21 09:16 Resp 12 03/22/21 09:16 BP 78/55 03/22/21 09:16 Pulse Ox 100 03/22/21 09:16 Weight last 48 hrs Weight 205 lb Physical Exam Narrative: EXAM NARRATIVE: GENERAL: Averagely built and averagely nourished in no acute distress HEENT: Pupils equal round reactive to light. No pallor or icterus. NECK: central trachea, Elevated JVD. CARDIOVASCULAR SYSTEM: S1-S2 regular. No murmur rubs or gallops. RESPIRATORY SYSTEM: Chest clear to auscultation. No wheezes rhonchi or rubs heard. ABDOMEN: Soft, nontender and nondistended. Normal bowel sounds present. EXTREMITIES: No cyanosis or edema. No signs of chronic venous insufficiency. 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 No focal neurological deficits. Data Labs: Other Labs: Baseline troponin T 4100 and at 6 hours 3107. NT proBNP 40,686. Troponin T on 07 January peaked at 2304 and NT proBNP of 11,404. Other Data: Other data: Outside hospital records reviewed #08 January 2021: Left heart cath with sequential diffuse disease involving proximal, mid and distal LAD of 70 to 80%. Chronic total occlusion of ostial second obtuse marginal with [id number] collaterals. Chronic total occlusion of proximal RCA with [id number] collaterals. Evaluated by interventional cardiology and CT surgery at outside hospital and patient thought not to be a candidate for CABG or PCI. #Carotid ultrasound 11 January 2021: No evidence of hemodynamically significant stenosis. #Transthoracic echocardiogram at [facility]: LVEF 15 to 20% with global hypokinesis. RV systolic dysfunction. #Lipid panel on 14 January, LDL 47, HDL 34, total cholesterol 99, triglyceride 124. Creatinine 1.3, BUN 32. BNP on January. #Transthoracic echo 16 January 2021 showed severely dilated left ventricle, severely reduced left ventricular systolic function with ejection fraction of 15% with diffuse hypokinesis with regional variations involving the apex anterior inferior and inferolateral mo. Grade 3 left ventricular diastolic dysfunction. Mildly dilated right ventricle with mildly reduced right ventricle systolic function. Aortic valve sclerosis without stenosis and apically tethered mitral leaflets. Posterior leaflet restriction with moderate to severe commissural mitral valve regurgitation with mean inflow gradient of 2 to 3 mmHg and peak systolic PA pressure of 46 mmHg. #Right heart catheterization: Mean right atrial pressure 12 mmHg. RV pressure 60/14, PA pressure 62/30 with mean of 40 mmHg and oxygen saturation of 63%. Pulmonary capillary wedge pressure mean of 31 mmHg. TPG 9 mmHg. Cardiac output 5.3 with index of 2.4 by thermodilution. PVR 1.7 Payan unit. #Cardiac MRI on 15 January 2021: Dilated left ventricle with severely reduced left ventricular systolic function. Left ventricular ejection fraction 24%. Severe global hypokinesis with apical akinesis. Dilated right ventricle with severely reduced right ventricular systolic function. RVEF 14%. Mitral regurgitation. Biatrial dilation. Late gadolinium enhancement in anterior/anteroseptal segments identified that would suggest previous myocardial infarction and myocardial edema. No delayed hyperenhancement in other myocardial segments to suggest myocarditis. Bilateral pleural effusion. #Upper and lower GI endoscopy on 19 January showed esophagitis discharged on pantoprazole twice daily. A&P Assessment and plan (1) CHF exacerbation: HFrEF (LVEF=15%), ischemic cardiomyopathy -Acute on chronic decompensated combined CHF, NYHA class III to IV symptoms. -decreased UO in ER. -worsening of renal function on recent BMP. -Hold losartan and aldactone d/t hyperkalemia. -start on dobutamine 2.5 mcg/kg/min and lasix 80 mg IV x 1. -I/O charting and daily weight -Currently undergoing transplant evaluation at OSH. Status: Acute Qualifiers: Heart failure type: combined systolic and diastolic Qualified Code(s): I50.43 - Acute on chronic combined systolic (congestive) and diastolic (congestive) heart failure (2) Ischemic cardiomyopathy: Status: Acute (3) CAD (coronary artery disease): Multivessel CAD -on ASA, plavix and statin Status: Acute Qualifiers: Coronary Disease-Associated Artery/Lesion type: [place] artery [place] vs. transplanted heart: [place] heart Associated angina: with unspecified form of angina Qualified Code(s): I25.119 - Atherosclerotic heart disease of [place] coronary artery with unspecified angina pectoris (4) TJ (acute kidney injury): TJ on underlying CKD -Cardiorenal in etiology. -f/u BMP Status: Acute (5) Hyperlipidemia: Status: Acute Qualifiers: Hyperlipidemia type: mixed hyperlipidemia Qualified Code(s): E78.2 - Mixed hyperlipidemia (6) Diabetes mellitus: Status: Acute Qualifiers: Diabetes mellitus type: type 2 Diabetes mellitus continuous churn buttermaker insulin use: unspecified continuous churn buttermaker insulin use status Additional A&P Information Mild hyperkalemia Elevated troponin Thank you for allowing me to participate in patient's care. Please feel free to call with questions or concerns. Consult Attestations Time Spent in Patient Care: Greater than 35 minutes (>than 50% of time spent in counselling and/or direct pt care on unit). Critical Care Time: The high probability of a clinically significant, sudden or life threatening deterioration of the patient's [] system(s) required my full and direct attention, intervention and personal management. The critical care time is as shown. This time is in addition to time spent performing any reported procedures but includes the following: [x] Data and vital sign review and interpretation [x] Patient assessment, examination and intervention [x] Documentation [x] Medication orders and management Coding Level of Care Code Acute Civil Celebrant for Suni Fwd Diagnoses CHF exacerbation I50.43 Heart failure type: combined systolic and diastolic Ischemic cardiomyopathy I25.5 CAD (coronary artery disease) I25.119 Coronary Disease-Associated Artery/Lesion type: [place] artery [place] vs. transplanted heart: [place] heart Associated angina: with unspecified form of angina TJ (acute kidney injury) N17.9 Hyperlipidemia E78.2 Hyperlipidemia type: mixed hyperlipidemia Diabetes mellitus E11.9 Diabetes mellitus type: type 2 Diabetes mellitus continuous churn buttermaker insulin use: unspecified continuous churn buttermaker insulin use status
--- NOTE | 2021-03-22 13:50 | ECG_ITS ---
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 Measurements Intervals [place] Rate: 86 P: 65 [place]: 154 QRS: 78 QRSD: 113 T: 240 QT: 377 QTc: 452 Interpretive Statements SINUS RHYTHM INFERIOR MYOCARDIAL INFARCTION , OF INDETERMINATE AGE [40+ ms Q WAVE AND/OR ST/T ABNORMALITY IN II/aVF] ANTEROLATERAL MYOCARDIAL INFARCTION , OF INDETERMINATE AGE [40+ ms Q WAVE IN I/aVL/V3-V6] Compared to ECG 03/22/2021 12:50:02 No significant changes Electronically Signed On 03-22-2021 23:10:38 CDT by Allan Medina M.D. [id number]
--- NOTE | 2021-03-22 14:49 | P.HP_ITS ---
Providers/Chief Complaint Admitting Physician: Berkley Ruano MD Primary Care Provider: Ilda Darnell Chief Complaint: SOB when laying down History of Present Illness Patient is a 61-year-old male with past medical history of hyperlipidemia [id number] type 2 diabetes, diabetic foot wound infection status post right big toe amputation who presented initially on 07 January with elevated BNP and troponin and some ST-T wave changes in inferior lateral leads. He was given aspirin Plavix started on heparin drip and transferred to [facility]. His proBNP was 14 476 and trope was 2595 hemoglobin 7.9, anion gap 20, creatinine 1.8. He was treated for recent inferior DE DKA received 2 units of packed RBCs during hospitalization. He underwent left heart cath that showed three-vessel disease and echo with left ejection fraction 20%. He was evaluated by CT surgery and cardiology at [facility]. He was thought not to be a candidate for CABG and PCI was thought to be high risk. He was eventually transferred to [facility] on 14 January for advanced heart failure management and stayed there till 812/. He was started on Lasix 80 twice a day and spironolactone 12.5 twice a day he was evaluated by Dr. Knox. CT surgery was consulted who implanted consulting interventional cardiology. Repeat echo showed severely decreased left ventricle systolic function with moderate to severe mitral valve regurgitation he underwent loop repeat left heart cath on January 20 however PCI coronary stenting was not possible. He was discharged home on LifeVest. Patient was discharged on metoprolol succinate, spironolactone and losartan. 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 He scheduled for follow-up echocardiogram in May. He was doing well on his dose of Bumex 2 mg daily which was decreased to 1 mg daily and held for few days. Last week he had shortness of breath with some left arm discomfort and was placed on 2 mg Bumex daily again. This above portion of history physical is obtained from Dr. Batres consult note. She has reviewed records from patient's other hospitalizations. I will try to obtain copies of those records as well. Today patient states he comes in for shortness of breath that has been going on for the last few weeks. It has been slowly progressive and worsening. He also complains of an episode of chest pain he had where it radiated down his left arm. is present at bedside. They do take blood pressure at home very kimmy rosado and pressure was quite low 70/50, 60/40 and therefore they decided to come to the hospital. Patient and his both state that patient would like to be DNR/DNI. He is currently wearing a LifeVest however but states that if his heart stops to let him go peacefully. He denies any chest pain at this time or shortness of breath or abdominal pain. He denies lower extremity edema. He states other than his cardiac history and this acute illness he feels pretty healthy and at his baseline. While in the ER patient did not receive any medications or fluids but blood pressure did improve on its own and has a MAP of 77-80 at this time when seen. Review of Systems General: Reports: 10 or more systems reviewed and unremarkable except in HPI and below Medications/Allergies Home Medications Medication Instructions Recorded Confirmed Last Taken Type aspirin [Aspir-81] 81 mg PO QAM 01/07/21 03/22/21 03/21/21 History glipizide 5 mg PO QAM 01/07/21 03/22/21 03/21/21 History metformin 1,000 mg PO BID 01/07/21 03/22/21 03/21/21 History simvastatin 20 mg PO DAILY 01/07/21 03/22/21 01/06/21 History acetaminophen [Tylenol] 325 mg PO Q4H PRN 03/22/21 03/22/21 Unknown History atorvastatin 80 mg PO DAILY 03/22/21 03/22/21 Unknown History bumetanide 2 mg PO QAM 03/22/21 03/22/21 03/21/21 History calcium carbonate 500 mg PO Q4H PRN 03/22/21 03/22/21 Unknown History calcium citrate-vitamin D3 1 tab PO DAILY 03/22/21 03/22/21 03/21/21 History [Calcium Citrate + D] clopidogrel 75 mg PO QAM 03/22/21 03/22/21 03/21/21 History dapagliflozin [Farxiga] 10 mg PO QAM 03/22/21 03/22/21 03/21/21 History losartan 25 mg PO QAM 03/22/21 03/22/21 03/21/21 History metoprolol succinate 50 mg PO BEDTIME 03/22/21 03/22/21 03/21/21 History nitroglycerin 0.4 mg SUBLINGUAL Q5M PRN 03/22/21 03/22/21 03/22/21 02:00 History pantoprazole 40 mg PO BID 03/22/21 03/22/21 Unknown History potassium chloride 10 meq PO QAM 03/22/21 03/22/21 03/21/21 History spironolactone 25 mg PO BID 03/22/21 03/22/21 03/21/21 History Allergies Allergy/AdvReac Type Severity Reaction Status Date / Time No Known Allergies Allergy Verified 03/22/21 12:10 PFSH Acute PFSH: Medical History (Updated 03/22/21 @ 21:20 by Cesia Batres MD) Amputated toe of right foot CAD (coronary artery disease) CHF exacerbation Diabetes mellitus Hyperlipidemia Ischemic cardiomyopathy Surgical History (Updated 03/22/21 @ 17:39 by Cesia Batres MD) H/O umbilical hernia repair History of appendectomy S/P LASIK surgery of both eyes Family History (Updated 03/22/21 @ 17:41 by Cesia Batres MD) Mother Hypertension Social History (Updated 03/22/21 @ 17:40 by Cesia Batres MD) Smoking and tobacco status: never smoked Alcohol intake: never Household members: spouse Marital status: Vitals/I&O/Wt Last Vital Signs Temp 97.6 F 03/22/21 07:56 Pulse 77 03/22/21 09:16 Resp 12 03/22/21 09:16 BP 78/55 03/22/21 09:16 Pulse Ox 100 03/22/21 09:16 Weight last 48 hrs Weight 92.986 kg Physical Exam Narrative: EXAM NARRATIVE: General: Alert oriented x3, patient seen sitting up in bed appearing very comfortable HEENT: Normocephalic, atraumatic, EOMI, breathing room air. Cardio: Regular rate rhythm, normal S1-S2, no murmurs rubs gallops, no JVD noted, pt appears euvolemic at this time Respiratory: Diminished b/l air entry but clear to auscultation no wheezes no rhonchi and no crackles appreciated GI: Abdomen soft, nontender, nondistended, bowel sounds + Behavior: Appropriate and cooperative Extremities: no edema, no cyanosis, extremities not cold to touch. Data : 03/22/21 08:20 03/22/21 08:20 A&P Assessment and plan (1) Ischemic cardiomyopathy: Status: Acute (2) TJ (acute kidney injury): Status: Acute (3) Hyperlipidemia: Status: Acute (4) CHF exacerbation: Status: Acute (5) CAD (coronary artery disease): Status: Acute (6) Diabetes mellitus: Status: Acute Additional A&P Information CHF 2/2 ICM 2/2 CAD, on medical mgmt, not a candidate for PCI as per other hospital records, being evaluated for transplant at OSH. NSTEMI, Trop elevation 2/2 demand ischemia TJ most likely cardio-renal syndrome Possible CHF exacerbation HLD DM Hyperkalemia Patients home BP runs 80-102 systolic/40-60's diastolic from BP log sheet that was reviewed. This morning however GOLD AND SILVER ASSAYER BP was 50-70's systolic to 30-50's diastolic. Patient appears euvolemic clinically and does not seem to be in active HF exacerbation. No JVD noted, lungs CTA, with decreased b/l air entry. His bumex has been adjusted outpatient. Last EF 15%. Not a smoker, does not report a cough or sputum production. Discussed case with Dr. Batres (cardiology). Her recommendations are appreciated. Will admit to ICU and place on dobutamine drip for low BP with goal MAP > 65. If needed, may add levophed. Will diurese with lasix 80 IV daily. BNP is quite high. Possible cardiorenal syndrome. Will see if renal function improves with diureses. Conitnue toprol, asa, atorvastatin, plavix Will repeat echocardiogram Monitor on tele Will hold aldactone and ARB I dont have suspicion for COPD exacerbation at this point. Patient had no wheezing but did have diminished air entry. Will monitor respiratory status for now. Will place NC. Will order procalcitonin. Denies fevers at home. No sputum production reported. DM - on farxiga, metformin and glipizide at home. Will place on SSI. Will hold home anti-hyperglycemics F: None indicated E: Replete as needed N: Cardiac diet A: Bedrest for today. DVT PPX; Heparin 5000 subc Code Status: DNR/DNI. present bedside when history obtained. Attestations Medical Necessity Statement*: Requires ICU level care. Coding Level of Care Code Acute Supervisor Fiber Locking for Chg Fwd Diagnoses Ischemic cardiomyopathy I25.5 TJ (acute kidney injury) N17.9 Hyperlipidemia E78.5 CHF exacerbation I50.9 CAD (coronary artery disease) I25.10 Diabetes mellitus E11.9
[2021-03-22 15:01] LABS: Troponin 5 6HR 3107 ng/L (0-15)
[2021-03-22] MEDS: DOBUTamine drip 500 MG/250 ML PREMIX IV (16:11)
--- NOTE | 2021-03-22 17:44 | PC.NURSE ---
REcieved pt from ER. Battery is not in his difibulater. removed before leaving. Pt. refuses phan cath at this time. States that he will use a urinal. Staff explained to him the importance of accurate urine measurements. verbalized understanding.
[2021-03-22] MEDS: FUROsemide 10 mg/mL SDV 10mL 80 MG IVP (17:52)
[2021-03-22] MEDS: heparin 5,000 unit/mL INJ 1 mL 5000 UNIT SUBCUT (17:52)
[2021-03-22] MEDS: pantoprazole DR 40 mg Tablet PO (17:52)
[2021-03-22] MEDS: spironolactone 25 mg Tablet PO (17:53)
[2021-03-22 22:00] LABS: Procalcitonin 0.11 ng/mL (0-0.5)
[2021-03-23] VITALS (81 sets, daily range): BP systolic 64–130; BP diastolic 43–86; PULSE 64–127; RESP 0–26; TEMP 36.1–36.6; O2SAT 83–100; BMI 28.6
[2021-03-23 03:47] LABS: Basophils % 0.3 %; Eosinophils % 0.2 %; Hematocrit 32.6 % (42.0-52.0); Hemoglobin 10.1 g/dL (11.7-16.6); Lymphocytes # 0.5 10^3/uL (0.8-4.8); Lymphocytes % 7.7 %; Mean Corpuscular Hemoglobin 28.5 pg (28.0-34.0); Mean Corpuscular Volume 92.1 fl (80-94); Mean Platelet Volume 11.9 fL (7.4-10.4); Monocytes # 0.5 10^3/uL (0.2-0.9); Neutrophils # 5.29 10^3/uL (1.8-7.7); Neutrophils % 83.3 %; Nucleated Red Blood Cells % 0 %; Platelet Count 126 10^3/cmm (130-400); Red Blood Count 3.54 10^6/uL (4.1-5.3); Red Cell Distribution Width 15.6 % (12.1-15.1); White Blood Count 6.4 10^3/uL (4.0-10.0)
[2021-03-23 04:08] LABS: Alanine Aminotransferase 6 U/L (0-41); Albumin Level 3.9 g/dL (3.5-5.2); Alkaline Phosphatase 77 IU/L (40-130); Anion Gap 22.7 (5-19); Aspartate Amino Transferase 11 U/L (0-40); Blood Urea Nitrogen 62 mg/dL (8-23); Calcium 9.2 mg/dL (8.5-10.5); Carbon Dioxide 22 mmol/L (22-29); Chloride 94 mmol/L (98-107); Globulin 2.8 g/dL (1.3-4.6); Glomerular Filtration Rate 19.7 mL/min (90-130); Glucose 242 mg/dL (65-115); Magnesium 1.8 mg/dL (1.7-2.3); Osmolality Calculated 304 mOsm/kg (285-295); Potassium 4.7 mmol/L (3.5-5.1); Sodium 134 mmol/L (136-145); Total Bilirubin 0.4 mg/dL (0.15-1.2); Total Protein 6.7 g/dL (6.6-8.7)
[2021-03-23] MEDS: clopidogrel 75 mg Tablet PO (06:14)
[2021-03-23] MEDS: heparin 5,000 unit/mL INJ 1 mL 5000 UNIT SUBCUT ×2 (06:14→17:05)
[2021-03-23] MEDS: aspirin 81 mg EC Tablet PO (06:14)
[2021-03-23] MEDS: DOBUTamine drip 500 MG/250 ML PREMIX 7.5 MG IV (06:32)
--- NOTE | 2021-03-23 07:00 | XRR_ITS ---
PROCEDURE INFORMATION: Exam: XR Chest Exam date and time: 03/23/2021 7:00 AM Age: 61 years old Clinical indication: Other: Follow up TECHNIQUE: Imaging protocol: XR of the chest. Views: 1 view. COMPARISON: CR XR chest 1V portable [id number] 03/22/2021 8:04 AM FINDINGS: Lungs: Accentuated right infrahilar interstitium would be difficult to entirely exclude intervally developing infiltrate. Pleural spaces: Unremarkable. No pleural effusion. No pneumothorax. Heart/Mediastinum: Cardiac enlargement. Vasculature: Calcified thoracic aorta. Bones/joints: Unremarkable. XR/XR chest 1V portable [id number] IMPRESSION: 1. Accentuation of cardiac size. 2. Prominent right infrahilar lower lung opacity could not entirely exclude developing infiltrate. Correlate for any symptoms of pneumonia. Radiation Dose CTDIVOL = (mGy): DLP = (mGy-cm)
--- NOTE | 2021-03-23 07:04 | PC.NURSE ---
Shift Note Frequent safety and comfort rounds continue. Orders and/or nursing care completed as indicated. Patient monitored for response to intervention and treatment(s). Education provided includes dobutamine drip. Patient verbalized understanding of teaching. Left AC IV infusing dobutamine at 7.5 mls/hr. Patient is alert and oriented x4, no wounds or skin issues noted at this time, and remains on room air. Patient had 1000 mls of urine out overnight by urinal. Patient had one episode of nausea and vomited this morning. He also had several low BP's throughout the evening, Dr. Batres aware and gave verbal orders to not increase Dobutamine drip above current rate of 7.5 mls/hr. Will continue to monitor.
[2021-03-23 07:44] LABS: Glucose Point of Care 288 mg/dL (70-110)
[2021-03-23] MEDS: ondansetron 2 mg/ML SDV 2 mL 4 MG IVP (07:44)
[2021-03-23] MEDS: insulin lispro 100 unit/1 mL SUBCUT ×3 (09:07→17:12)
[2021-03-23] MEDS: pantoprazole DR 40 mg Tablet PO ×2 (09:08→17:12)
[2021-03-23] MEDS: atorvastatin 40 mg Tablet 80 MG PO (09:08)
[2021-03-23] MEDS: sodium chloride 0.9% 250 ML IV ×2 (09:27→16:20)
--- NOTE | 2021-03-23 09:50 | PM.PN ---
Subjective Subjective: Interval history: Patient was seen multiple times throughout the day. Overnight patient's dobutamine drip was increased to 7.5. Patient had dinner last night but later on in the night he had few episodes of nausea and vomiting. His nausea improved after Zofran and phenergan this morning. Dobutamine drip drip was decreased to 5. No more episodes of vomiting since around 11 this morning -UO 1000 ml overnight; Minimal PO intake since morning. Patient's appears somewhat lethargic. -Total 750 cc of fluid bolus given. No events on telemetry. Patient remains in sinus tachycardia with heart rate running in 100'-110's Medications: Reviewed: Yes Vitals/I&O/Wt Last Vital Signs Temp 97.6 F 03/23/21 08:15 Pulse 114 H 03/23/21 09:15 Resp 19 H 03/23/21 09:15 BP 76/55 03/23/21 09:15 Pulse Ox 98 03/23/21 09:15 03/22/21 03/23/21 03/23/21 22:59 06:59 14:59 Intake Total 9.042 / 9.042 560.5 / 569.542 8.25 / 8.25 Output Total 1000 / 1000 Balance 9.042 / 9.042 -439.5 / -430.458 8.25 / 8.25 Weight last 48 hrs Weight 211 lb 6 oz Weight 205 lb Physical Exam Narrative: EXAM NARRATIVE: GENERAL: Averagely built and averagely nourished in no acute distress HEENT: Pupils equal round reactive to light. No pallor or icterus. NECK: central trachea, Elevated JVD. CARDIOVASCULAR SYSTEM: S1-S2 regular. Tachycardia present. PMI displaced. systolic murmur+ RESPIRATORY SYSTEM: Chest clear to auscultation. No wheezes rhonchi or rubs heard. ABDOMEN: Soft, nontender and nondistended. Normal bowel sounds present. EXTREMITIES: No cyanosis or edema. warm to touch. No signs of chronic venous insufficiency. 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 No focal neurological deficits. Data : 03/23/21 15:14 03/23/21 15:14 Micro: Microbiology 03/22/21 23:09 Blood Culture - Preliminary Blood SPECIMEN COLLECTED 03/22/21 23:05 Blood Culture - Preliminary Blood SPECIMEN COLLECTED Attestation for Other Data: I personally reviewed and interpreted the following: Other data: CXR (03/23/21) IMPRESSION: 1. Accentuation of cardiac size. 2. Prominent right infrahilar lower lung opacity could not entirely exclude developing infiltrate. Correlate for any symptoms of pneumonia A&P Assessment and plan (1) CHF exacerbation: HFrEF (LVEF=15%), ischemic cardiomyopathy (Currently undergoing transplant evaluation at OSH). -Acute on chronic decompensated combined CHF, NYHA class III symptoms. -worsening of renal function on last BMP. -Hold losartan and aldactone d/t hyperkalemia and worsening of renal function. -f/u recent labs from PCP; f/u on limited echo -will hold off on lasix today. 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 Patient awaiting transfer at the moment. Status: Acute Qualifiers: Heart failure type: combined systolic and diastolic Qualified Code(s): I50.43 - Acute on chronic combined systolic (congestive) and diastolic (congestive) heart failure (2) Ischemic cardiomyopathy: Status: Acute (3) CAD (coronary artery disease): Multivessel CAD -on ASA, plavix and statin Status: Acute Qualifiers: Associated angina: with unspecified form of angina Coronary Disease-Associated Artery/Lesion type: [place] artery [place] vs. transplanted heart: [place] heart Qualified Code(s): I25.119 - Atherosclerotic heart disease of [place] coronary artery with unspecified angina pectoris (4) TJ (acute kidney injury): TJ on underlying CKD (baseline ~1.5) -Cardiorenal in etiology. -f/u BMP with increase in BUN from 55-62 and creatinine 3.4 to 3.2; repeat this evening Status: Acute (5) Hyperlipidemia: Status: Acute Qualifiers: Hyperlipidemia type: mixed hyperlipidemia Qualified Code(s): E78.2 - Mixed hyperlipidemia (6) Diabetes mellitus: Status: Acute Qualifiers: Diabetes mellitus correction insulin use: unspecified correction insulin use status Diabetes mellitus type: type 2 Additional A&P Information Mild hyperkalemia: Mild hyponatremia Elevated troponin: likely NSTEMI type 2 Moderate to severe MR on last echo Anemia H/o gastritis Thank you for allowing me to participate in patient's care. Please feel free to call with questions or concerns. Attestations Medical Necessity Statement*: As per primary team Time Spent in Patient Care: Greater than 35 minutes Critical Care Time: The high probability of a clinically significant, sudden or life threatening deterioration of the patient's [] system(s) required my full and direct attention, intervention and personal management. The critical care time is as shown. This time is in addition to time spent performing any reported procedures but includes the following: [x] Data and vital sign review and interpretation [x] Patient assessment, examination and intervention [x] Documentation [x] Medication orders and management Critical Care Time (min): 30 Coding Level of Care Code Acute Tooling Engineer for g Fwd Diagnoses CHF exacerbation I50.43 Heart failure type: combined systolic and diastolic Ischemic cardiomyopathy I25.5 CAD (coronary artery disease) I25.119 Associated angina: with unspecified form of angina Coronary Disease-Associated Artery/Lesion type: [place] artery [place] vs. transplanted heart: [place] heart TJ (acute kidney injury) N17.9 Hyperlipidemia E78.2 Hyperlipidemia type: mixed hyperlipidemia Diabetes mellitus E11.9 Diabetes mellitus ocean transportation intermediary insulin use: unspecified ocean transportation intermediary insulin use status Diabetes mellitus type: type 2
[2021-03-23] MEDS: promethazine 25 mg/mL SDV 1 mL 12.5 MG IM (10:25)
--- NOTE | 2021-03-23 10:38 | PC.CHAP ---
Pastoral Care Encounter/Spiritual Assessment Type of Contact [] Declined forensics analyst visit [] Patient/Family/Request visit [] Outpatient visit [] Follow-up visit [] Physician referral [] Code/Alert [x] Routine visit [] Staff referral [] Actively dying [] Patient sleeping [] Family support [] [] Out of room [] Palliative care [] [] Receiving care in room [] Pre-surgical visit [] Trauma [] Long length of stay [] ICU visit [] Other: Relational/Emotional Strength [] Patient feels connected with others/family/visitors/staff [] Distress [] Loneliness/isolation [] Abandonment Spirituality of Patient [x] Person of Hailey [] Attends Congregational of their Hailey [x] Believes in Prayer [] Reads Bible or Alevism materials [] There are Spiritual issues to be addressed Straight Line Press Setter Interventions [x] Prayer [] Active listening [] Non-anxious presence [] Spiritual/emotional support [] Crisis/trauma care [] Spiritual counseling [] Bereavement support [] Provided bereavement packet [] Provided Bible/devotional materials [] Provided toy/stuffed animal, coloring book to patient or family member [] Provided Communion [] Anointing/[place] [] Salvation [] Completed spiritual assessment [] Other: Impact on Illness or Injury [] Angry [] Fearful [] Anxious [] Often cries [] Exhaustion [] Unable to work [] Unable to attend protestant [] Unable to walk/stand [] Unable to read [] Unable to drive [] Unable to eat/drink [] Unable to sleep [] Unable to be with family [] Patient intubated [] Other: Summary Calm, patiently waiting, trying to get well. Time spent with patient 2 minutes
[2021-03-23] MEDS: sodium chloride 0.9% 250 ML 500 ML IV (10:50)
--- NOTE | 2021-03-23 11:51 | PC.NURSE ---
Patient started feeling nauseas and vomited. WHIle vomiting, his heard rate dropped to the mid 50's and patient became hard to rouse. Patient was suctioned and sat upright. After 1-2 minutes his mental status returned to baseline. IM phenergan given to pt per Dr george orders. Dr george was at bedside during event.
--- NOTE | 2021-03-23 12:50 | PC.NURSE ---
Bladder scan shows that patient is retianing approximately 450 mL of urine. Nurse inserted phan catheter per Dr ariel vaz.
[2021-03-23 13:23] LABS: Glucose Point of Care 298 mg/dL (70-110)
--- NOTE | 2021-03-23 14:26 | USCV_ITS ---
Luis M Browne Age: 61 Gender: M : 1960 Exam Date: 03/23/2021 15:31 Ordering Phys: Cesia Batres MD ([email or web address]) Technologist: Abdullahi Wan Exam Location: [facility] [place] Indication: CHF, SOB BP: 95 / 72 HR: 96 Rhythm: Sinus Technical Quality: Very technically difficult study MEASUREMENTS (Male / Female) Normal Values 2D ECHO LV Diastolic Diameter PLAX 5.1 cm 4.2 - 5.9 / 3.9 - 5.3 cm LV Systolic Diameter PLAX 4.4 cm IVS Diastolic Thickness 0.9 cm 0.6 - 1.0 / 0.6 - 0.9 cm IVS Systolic Thickness 1.0 cm LVPW Diastolic Thickness 0.9 cm 0.6 - 1.0 / 0.6 - 0.9 cm LVPW Systolic Thickness 0.9 cm LV Ejection Fraction 2D Teich 21.3 % LV Ejection Fraction MOD 2C 33.1 % LV Ejection Fraction 2C AL 33.2 % M-MODE MV E Point Septal Separation 3.1 cm FINDINGS Left Ventricle Dilated left ventricle. Severely decreased right ventricle systolic function. Left ventricular ejection fraction is estimated at 10-15 %. Severe global hypokinesis with akinetic mid to apical anterior, and all apical mo. No evidence of left ventricular apical thrombus. Abnormal septal motion consistent with conduction abnormality. Right Ventricle Dilated right ventricle with moderately decreased right ventricle systolic function Right Atrium Mildly increased right atrial size. Left Atrium Moderately increased left atrial size. Mitral Valve Mild mitral annular calcification. Thickened mitral valve. Moderate mitral regurgitation Aortic Valve Mildly thickened trileaflet aortic valve. Tricuspid Valve Tricuspid valve not well visualized. Pulmonic Valve Pulmonic valve not well visualized. Pericardium No pericardial effusion. Aorta Dilated inferior vena cava with decreased respiratory variation. CONCLUSIONS 1. This is a technically very difficult and limited study. Ultrasound dancing agent Optison was used per protocol. 2. Dilated left ventricle. Severely decreased right ventricle systolic function. Left ventricular ejection fraction is estimated at 10-15 %. Severe global hypokinesis with akinetic mid to apical anterior, and all apical mo. No evidence of left ventricular apical thrombus. 3. Dilated inferior vena cava with decreased respiratory variation. 4. Moderately increased left atrial size. 5. Moderate mitral regurgitation 6. Right atrial pressure estimated at 15 mmHg. 7. No prior similar studies to compare. Cesia Batres MD (Electronically Signed) Final Date: 24 March 2021 12:51 S
[2021-03-23 15:21] LABS: Basophils % 0.1 %; Hematocrit 33.6 % (42.0-52.0); Hemoglobin 10.4 g/dL (11.7-16.6); Lymphocytes # 0.4 10^3/uL (0.8-4.8); Lymphocytes % 5.3 %; Mean Corpuscular Hemoglobin 28.7 pg (28.0-34.0); Mean Corpuscular Volume 92.6 fl (80-94); Mean Platelet Volume 11.8 fL (7.4-10.4); Monocytes # 0.4 10^3/uL (0.2-0.9); Monocytes % 6.1 %; Neutrophils # 6.16 10^3/uL (1.8-7.7); Neutrophils % 87.6 %; Nucleated Red Blood Cells % 0 %; Platelet Count 151 10^3/cmm (130-400); Red Blood Count 3.63 10^6/uL (4.1-5.3); Red Cell Distribution Width 15.5 % (12.1-15.1)
[2021-03-23] MEDS: perflutren protein-a microsphr 0.22 mg/mL SDV 3 mL IV (15:47)
[2021-03-23] MEDS: piperacillin-tazobactam 3.375 GM in sodium chloride 0.9% (plus) 50 ML IV (15:48)
--- NOTE | 2021-03-23 15:58 | PM.PN ---
Vitals/I&O/Wt Last Vital Signs Temp 96.9 F L 03/23/21 10:15 Pulse 113 H 03/23/21 13:00 Resp 15 03/23/21 12:45 BP 98/70 03/23/21 13:00 Pulse Ox 98 03/23/21 13:00 03/23/21 03/23/21 03/23/21 06:59 14:59 22:59 Intake Total 560.5 / 569.542 8.25 / 8.25 Output Total 1000 / 1000 350 / 350 Balance -439.5 / -430.458 -341.75 / -341.75 Weight last 48 hrs Weight 91.989 kg Weight 95.878 kg Weight 92.986 kg Physical Exam Urinary Catheter Management^: Retana: Cath Placed During This Visit: yes Urinary Catheter Date of Insertion: 03/23/21 Urinary Catheter Time of Insertion: 12:39 Data : 03/23/21 15:14 03/23/21 03:05 Micro: Microbiology 03/22/21 23:09 Blood Culture - Preliminary Blood SPECIMEN COLLECTED 03/22/21 23:05 Blood Culture - Preliminary Blood SPECIMEN COLLECTED Coding Level of Care Code Acute Liner Machine Operator for David Rascon
[2021-03-23 16:11] LABS: Alanine Aminotransferase 8 U/L (0-41); Alkaline Phosphatase 82 IU/L (40-130); Anion Gap 23.2 (5-19); Aspartate Amino Transferase 19 U/L (0-40); Blood Urea Nitrogen 59 mg/dL (8-23); Carbon Dioxide 21 mmol/L (22-29); Chloride 96 mmol/L (98-107); Globulin 2.8 g/dL (1.3-4.6); Glomerular Filtration Rate 22.1 mL/min (90-130); Glucose 276 mg/dL (65-115); Osmolality Calculated 306 mOsm/kg (285-295); Potassium 5.2 mmol/L (3.5-5.1); Sodium 135 mmol/L (136-145); Total Bilirubin 0.4 mg/dL (0.15-1.2); Total Protein 6.8 g/dL (6.6-8.7)
[2021-03-23 17:10] LABS: Glucose Point of Care 268 mg/dL (70-110)
--- NOTE | 2021-03-23 17:48 | PC.NURSE ---
Patient report given to azam at [facility] for room HC905. Phone umber: [phone]
--- NOTE | 2021-03-23 18:26 | PC.NURSE ---
[employer] has checked weather with 4 different aircraft. all 4 declined. [facility] fixed wing should be able to take the flight when they become available again at approximately 930pm-10pm. Pending another weather check. Family wants to wait for this option. Did not want to try ground transport in order to reduce out of hospital time. Patient's is aware that this is not guaranteed as another weather check will need to be performed. Jolie with [facility] has been informed of delay. Nurse spoke to roscoe with [employer] evac fixed [phone] Dr Ruano informed of delay. No order changes made by her at this time.
--- NOTE | 2021-03-23 18:59 | P.TS_ITS ---
Transfer Summary Providers Date of Admission: 03/22/21 17:20 Date of Discharge: 03/23/21 Attending Provider at Admission: Berkley Ruano MD Attending Provider at Transfer: Berkley Ruano MD Primary Care Provider: Ilda Darnell Anticipated Date of Transfer: Anticipated date of transfer: 03/23/21 Receiving Facility & Provider: Receiving Provider: [Dr. Madrid] Receiving facility: [[facility]] Diagnoses at Discharge Discharge Diagnosis (1) CHF exacerbation: Status: Acute Qualifiers: Heart failure type: combined systolic and diastolic Qualified Code(s): I50.43 - Acute on chronic combined systolic (congestive) and diastolic (congestive) heart failure (2) Ischemic cardiomyopathy: Status: Acute (3) CAD (coronary artery disease): Status: Acute Qualifiers: Associated angina: with unspecified form of angina Coronary Disease- Associated Artery/Lesion type: [place] artery Elim [place] vs. 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 He was given aspirin Plavix started on heparin drip and transferred to [facility]. His proBNP was 14 476 and trope was 2595 hemoglobin 7.9, anion gap 20, creatinine 1.8. He was treated for recent inferior [place] DKA received 2 units of packed RBCs during hospitalization. He underwent left heart cath that showed three-vessel disease and echo with left ejection fraction 20%. He was evaluated by CT surgery and cardiology at [facility]. He was thought not to be a candidate for CABG and PCI was thought to be high risk. He was eventually transferred to [facility] on 14 January for advanced heart failure management and stayed there till . He was started on Lasix 80 twice a day and spironolactone 12.5 twice a day he was evaluated by Dr. Knox. CT surgery was consulted who implanted consulting interventional cardiology. Repeat echo showed severely decreased left ventricle systolic function with moderate to severe mitral valve regurgitation he underwent loop repeat left heart cath on January 20 however PCI coronary stenting was not possible. He was discharged home on LifeVest. Patient was discharged on metoprolol succinate, spironolactone and losartan. He had a follow-up appointment with his patent agent last month and is due for another telemetry visit later this month. He scheduled for follow-up echocardiogram in May. He was doing well on his dose of Bumex 2 mg daily which was decreased to 1 mg daily and held for few days. Last week he had shortness of breath with some left arm discomfort and was placed on 2 mg Bumex daily again. This above portion of history physical is obtained from Dr. Batres consult note. She has reviewed records from patient's other hospitalizations. I will try to obtain copies of those records as well. Today patient states he comes in for shortness of breath that has been going on for the last few weeks. It has been slowly progressive and worsening. He also complains of an episode of chest pain he had where it radiated down his left arm. is present at bedside. They do take blood pressure at home very regularly and pressure was quite low 70/50, 60/40 and therefore they decided to come to the hospital. Patient and his both state that patient would like to be DNR/DNI. He is currently wearing a LifeVest however but states that if his heart stops to let him go peacefully. He denies any chest pain at this time or shortness of breath or abdominal pain. He denies lower extremity edema. He states other than his cardiac history and this acute illness he feels pretty healthy and at his baseline. While in the ER patient did not receive any medications or fluids but blood pressure did improve on its own and has a MAP of 77-80 at this time when seen. HPI as per Dr. Ruano above Today: Patient was seen and examined this morning. He has been having some nausea. Overnight the nurse to try to wean down on dobutamine but was unable to due to low blood pressure. He is currently on 5 of dobutamine per hour. was seen at bedside in the afternoon by myself and later together with Dr. Batres. Dr. Batres has gone over patient's plan and current status with the as well. Patient's has requested that we transfer the patient to [facility] for higher level of care. She states they were in the process of getting evaluated for LVAD and possible heart transplant. She would be more comfortable if he was at that hospital since all his records are there and the doctor he sees is also there. Repeat echo was done today and reviewed by patent agent. Official report is pending but EF is 10 to 15%. Patient did get 1 dose of IV Lasix 80 mg on admission. Urine output overnight was 1000 ml. Patient did have episode of vomiting today. He has received 250 cc bolus x2 so far. Lactic acid is normal. Procalcitonin is very low. There is no suspicion of pneumonia. Patient is afebrile. There is no white count elevation. There was an x-ray done this morning on which she reports showed a possible developing infiltrate pneumonia not excluded. I did look at the image but do not believe patient has pneumonia at this time. I will just empirically cover with Zosyn although suspicion is very low. Patient's labs repeated this afternoon and kidney function creatinine has improved to 2.9 from 3.4 on admission. He is unable to be weaned off of the dobutamine drip at this point. We have called the transfer line and patient has been accepted at [facility] under Dr. Madrid. We will transfer patient there via air evac. Later I was informed by nurse that [facility] is not available due to weather conditions in [place] and patient's family does not want to try alternative means of transport at this point. They will wait for an airplane that can possibly be here within the next 3 to 4 hours. Transfer form has been signed. Signout has been given to [facility] as well. Nurses have been updated. Dr. Batres has also been updated. Code status: Full Code Physical Exam Narrative: EXAM NARRATIVE: General: Alert oriented x3, patient seen laying in bed today. Appears comfortable. HEENT: Normocephalic, atraumatic, EOMI, breathing room air. Cardio: Slightly tachycardic, normal S1-S2, no murmurs rubs gallops, JVD elevated. Respiratory: Diminished b/l air entry but clear to auscultation no wheezes no rhonchi and no crackles appreciated GI: Abdomen soft, nontender, nondistended, bowel sounds + Behavior: Appropriate and cooperative Extremities: no edema, no cyanosis, extremities not cold to touch Neuro: No focal neurological deficits. Urinary Catheter Management^: Retana: Cath Placed During This Visit: yes Reason for Continuing Indwelling Catheter: Accurate Measurement of Urinary Output in Critically Ill Patients Urinary Catheter Date of Insertion: 03/23/21 Urinary Catheter Time of Insertion: 12:39 TS Data Data Completed and Pending: Completed Studies During Hospitalization Category Date Time Status XR chest 1V ginger ble [id number] Routine Exams 03/23/21 07:00 Completed XR chest 1V ginger ble [id number] Stat Exams 03/22/21 07:50 Completed Pending at discharge Category Date Time Status Arterial Blood Ga s W/O Coox AM LABS Lab 03/23/21 04:00 Ordered Bacterial Antigen Stat Lab 03/23/21 14:28 Ordered Blood Culture Sta t Lab 03/22/21 23:09 Results Legionella Antige n STAT Stat Lab 03/23/21 14:28 Ordered Sputum Culture an d Gram Stain Stat Lab 03/22/21 21:25 Uncollected Sputum Culture an d Gram Stain Stat Lab 03/22/21 22:51 Uncollected Urine Culture Sta t Lab 03/22/21 12:30 Received CV echo lmt wo/w con w color Routin e Ultrasound 03/23/21 14:26 Taken Labs from last 24 hours 03/23/21 03/23/21 03/23/21 16:59 15:14 15:14 WBC 7.0 RBC 3.63 L Hgb 10.4 L Hct 33.6 L MCV 92.6 MCH 28.7 MCHC 31.0 RDW 15.5 H Plt Count 151 MPV 11.8 H Neut % (Auto) 87.6 Lymph % (Auto) 5.3 Stanley % (Auto) 6.1 Eos % (Auto) 0.0 Baso % (Auto) 0.1 Neut # (Auto) 6.16 Lymph # (Auto) 0.4 L Stanley # (Auto) 0.4 Eos # (Auto) 0.0 Baso # (Auto) 0.0 Nucleated RBC % (a uto) 0 Nucleated RBCs # 0.0 Sodium 135 L Potassium 5.2 H Chloride 96 L Carbon Dioxide 21 L Anion Gap 23.2 H BUN 59 H Creatinine 2.9 H GFR Calculation 22.1 L Glucose 276 H POC Glucose 268 H Calculated Osmolal ity 306 H Lactic Acid Calcium 9.0 Magnesium Total Bilirubin 0.4 AST 19 ALT 8 Alkaline Phosphata se 82 Total Protein 6.8 Albumin 4.0 Globulin 2.8 Procalcitonin 03/23/21 03/23/21 03/23/21 12:58 07:40 03:05 WBC RBC Hgb Hct MCV MCH MCHC RDW Plt Count MPV Neut % (Auto) Lymph % (Auto) Stanley % (Auto) Eos % (Auto) Baso % (Auto) Neut # (Auto) Lymph # (Auto) Stanley # (Auto) Eos # (Auto) Baso # (Auto) Nucleated RBC % (a uto) Nucleated RBCs # Sodium 134 L Potassium 4.7 Chloride 94 L Carbon Dioxide 22 Anion Gap 22.7 H BUN 62 H Creatinine 3.2 H GFR Calculation 19.7 L Glucose 242 H POC Glucose 298 H 288 H Calculated Osmolal ity 304 H Lactic Acid Calcium 9.2 Magnesium 1.8 Total Bilirubin 0.4 AST 11 ALT 6 Alkaline Phosphata se 77 Total Protein 6.7 Albumin 3.9 Globulin 2.8 Procalcitonin 03/23/21 03/22/21 03/22/21 03:05 23:05 14:22 WBC 6.4 RBC 3.54 L Hgb 10.1 L Hct 32.6 L MCV 92.1 MCH 28.5 MCHC 31.0 RDW 15.6 H Plt Count 126 L D MPV 11.9 H Neut % (Auto) 83.3 Lymph % (Auto) 7.7 Stanley % (Auto) 8.0 Eos % (Auto) 0.2 Baso % (Auto) 0.3 Neut # (Auto) 5.29 Lymph # (Auto) 0.5 L Stanley # (Auto) 0.5 Eos # (Auto) 0.0 Baso # (Auto) 0.0 Nucleated RBC % (a uto) 0 Nucleated RBCs # 0.0 Sodium Potassium Chloride Carbon Dioxide Anion Gap BUN Creatinine GFR Calculation Glucose POC Glucose Calculated Osmolal ity Lactic Acid 2.0 Calcium Magnesium Total Bilirubin AST ALT Alkaline Phosphata se Total Protein Albumin Globulin Procalcitonin 0.11 Vitals: Last Vital Signs Temp 97.0 F L 03/23/21 16:30 Pulse 107 H 03/23/21 18:00 Resp 16 03/23/21 18:00 BP 102/76 03/23/21 18:00 Pulse Ox 98 03/23/21 18:00 TS Medications Medications Home Medications aspirin [Aspir-81] 81 mg PO QAM 01/07/21 [History Confirmed 03/22/21] glipizide 5 mg PO QAM 01/07/21 [History Confirmed 03/22/21] metformin 1,000 mg PO BID 01/07/21 [History Confirmed 03/22/21] simvastatin 20 mg PO DAILY 01/07/21 [History Confirmed 03/22/21] acetaminophen [Tylenol] 325 mg PO Q4H PRN 03/22/21 [History Confirmed 03/22/21] atorvastatin 80 mg PO DAILY 03/22/21 [History Confirmed 03/22/21] bumetanide 2 mg PO QAM 03/22/21 [History Confirmed 03/22/21] calcium carbonate 500 mg PO Q4H PRN 03/22/21 [History Confirmed 03/22/21] calcium citrate-vitamin D3 [Calcium Citrate + D] 1 tab PO DAILY 03/22/21 [History Confirmed 03/22/21] clopidogrel 75 mg PO QAM 03/22/21 [History Confirmed 03/22/21] dapagliflozin [Farxiga] 10 mg PO QAM 03/22/21 [History Confirmed 03/22/21] losartan 25 mg PO QAM 03/22/21 [History Confirmed 03/22/21] metoprolol succinate 50 mg PO BEDTIME 03/22/21 [History Confirmed 03/22/21] nitroglycerin 0.4 mg SUBLINGUAL Q5M PRN 03/22/21 [History Confirmed 03/22/21] pantoprazole 40 mg PO BID 03/22/21 [History Confirmed 03/22/21] potassium chloride 10 meq PO QAM 03/22/21 [History Confirmed 03/22/21] spironolactone 25 mg PO BID 03/22/21 [History Confirmed 03/22/21] Active Medications Acetaminophen (Acetaminophen 325 Mg Tablet) 325 mg PO Q4H PRN PRN Reason: Pain Aspirin (Aspirin 81 Mg Ec Tablet) 81 mg PO QAM [facility] Last Admin: 10/12/21 06:14 Dose: 81 mg Documented by: Atorvastatin Calcium (Atorvastatin 40 Mg Tablet) 80 mg PO DAILY [facility] Last Admin: 03/23/21 09:08 Dose: 80 mg Documented by: Clopidogrel Bisulfate (Clopidogrel 75 Mg Tablet) 75 mg PO QAM [facility] Last Admin: 03/23/21 06:14 Dose: 75 mg Documented by: Dextrose (Dextrose 50% Syringe 50 Ml) 25 ml IVP ONCE PRN; Protocol PRN Reason: hypoglycemia protocol Dextrose (Dextrose 50% Syringe 50 Ml) 50 ml IVP PRN PRN; Protocol PRN Reason: hypoglycemia protocol Furosemide (Furosemide 10 Mg/Ml Sdv 10ml) 80 mg IVP Q24H [facility] Last Admin: 03/23/21 09:07 Dose: Not Given Documented by: Glucagon (Glucagon 1 Mg/Ml Inj 1 Ml) 1 mg IM ONCE PRN; Protocol PRN Reason: Adult Acute Hypoglycemia Prot. Heparin Sodium (Porcine) (Heparin 5,000 Unit/Ml Inj 1 Ml) 5,000 unit SUBCUT Q12H [facility] Last Admin: 03/23/21 17:05 Dose: 5,000 unit Documented by: Dobutamine HCl/Dextrose (Dobutamine Drip) 500 mg in 250 mls @ 0 mls/hr IV .Q0M [facility]; Protocol Last Titration: 03/23/21 17:28 Dose: 5 mls/hr, 5 mls/hr Documented by: Dextrose (D5w) 500 mls @ 100 mls/hr IV ONCE PRN; Protocol PRN Reason: Adult Acute Hypoglycemia Prot Piperacillin Sod/Tazobactam (Sod 3.375 gm/ Sodium Chloride) 50 mls @ 12.5 mls/hr IV Q8H [facility] Last Admin: 03/23/21 15:48 Dose: 12.5 mls/hr Documented by: Insulin Human Lispro (Insulin Lispro 100 Unit/1 Ml) 0 unit SUBCUT WM&BEDTIME [facility]; Protocol Last Admin: 03/23/21 17:12 Dose: 10 unit Documented by: Metoprolol Succinate (Metoprolol Succinate Er (24 Hr) 50 Mg Tablet) 50 mg PO BEDTIME [facility] Last Admin: 03/22/21 21:51 Dose: Not Given Documented by: Ondansetron HCl (Ondansetron 2 Mg/Ml Sdv 2 Ml) 4 mg IVP Q6H PRN PRN Reason: NAUSEA AND VOMITING Last Admin: 03/23/21 07:44 Dose: 4 mg Documented by: Pantoprazole Sodium (Pantoprazole Dr 40 Mg Tablet) 40 mg PO BID [facility] Last Admin: 03/23/21 17:12 Dose: 40 mg Documented by: Promethazine HCl (Promethazine 25 Mg/Ml Sdv 1 Ml) 12.5 mg IM Q6H PRN PRN Reason: NAUSEA Last Admin: 03/23/21 10:25 Dose: 12.5 mg Documented by: Spironolactone (Spironolactone 25 Mg Tablet) 25 mg PO BID [facility] Last Admin: 03/22/21 17:53 Dose: 25 mg Documented by: Discharge Plan Discharge Patient Disposition: Xfer Other Condition: Stable Prescriptions: No Action aspirin [Aspir-81] 81 mg Tablet,Delayed Release (Dr/Ec) 81 mg PO QAM RF: 0 simvastatin 20 mg tablet 20 mg PO DAILY RF: 0 metformin 1,000 mg tablet 1,000 mg PO BID RF: 0 glipizide 5 mg tablet 5 mg PO QAM RF: 0 atorvastatin 80 mg tablet 80 mg PO DAILY RF: 0 Tylenol 325 mg Tablet 325 mg PO Q4H PRN (Reason: Pain) RF: 0 calcium carbonate 500 mg Capsule 500 mg PO Q4H PRN (Reason: UNKNOWN) RF: 0 bumetanide 2 mg tablet 2 mg PO QAM RF: 0 metoprolol succinate 50 mg tablet extended release 24 hr 50 mg PO BEDTIME RF: 0 potassium chloride 10 mEq tablet extended release 10 meq PO QAM RF: 0 clopidogrel 75 mg tablet 75 mg PO QAM RF: 0 spironolactone 25 mg tablet 25 mg PO BID RF: 0 pantoprazole 40 mg tablet,delayed release (DR/EC) 40 mg PO BID RF: 0 losartan 25 mg tablet 25 mg PO QAM RF: 0 nitroglycerin 0.4 mg tablet, sublingual 0.4 mg sublingual Q5M PRN (Reason: Chest Pain) RF: 0 Calcium Citrate + D 315 mg-5 mcg (200 unit) Tablet 1 tab PO DAILY RF: 0 Farxiga 10 mg tablet 10 mg PO QAM RF: 0 Discharge Diet: Cardiac Discharge Activity: Bedrest Transfer Attestations Time Spent in Transfer Care*: greater than 30 min Specific Discharge Activities: Specific discharge activities: educating and/or supporting family/caregiver, discussing with pcp/other providers, documenting/other paperwork and evaluating patient/reviewing data Status at Transfer: Cognitive status at transfer: cognitively intact , Behavioral status at transfer: cooperative , Quality Metrics Clinical Quality Measures: During this hospital stay, did patient experience: None Coding Level of Care Code Acute Weigher Packing for Chg Fwd Diagnoses CHF exacerbation I50.43 Heart failure type: combined systolic and diastolic Ischemic cardiomyopathy I25.5 CAD (coronary artery disease) I25.119 Associated angina: with unspecified form of angina Coronary Disease-Associated Artery/Lesion type: [place] artery Elim [place] vs. 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
--- NOTE | 2021-03-23 19:31 | PC.NURSE ---
Received report from Air evac due to weather, all flights are grounded and patient is unable to transfer. Called Dr. Hernandez and updated Dr with report of needing to get patient transferred for bed securement for LVAD/heart transplant. Dr. Hernandez deemed patient requires life threatening transport for ground transport though [facility]. Called [facility], updated family. Awaiting transfer crew at this time.
[2021-03-23] MEDS: DOBUTamine drip 500 MG/250 ML PREMIX IV (20:00)
--- NOTE | 2021-03-23 20:10 | PC.NURSE ---
Addendum entered by Denise Hilton RN 03/23/21 20:13: Josefina at [facility] was called to inform of patient transfer. Original Note: At 1999 patient was released to [facility], will be [facility] to [facility]. updated on travel through ground, physician previously notified of transfer. VSS stable on discharge from [facility]. No signs or symptoms of distress.
--- NOTE | 2021-03-24 07:57 | PC.SOCIAL ---
spoke with patients nurse Babar RN, at [facility]. She reports patient is doing good he made it to the hospital around midnight last night. they have done a few labs and have plans for a right heart cath later today.
== END 2021-03-23 20:00 | disposition short-term general hospital (02) | DRG 280 ==
LOC: ER 13:23 → ICU 15:13
PROVIDERS: Admitting Provider Internal Medicine; Emergency Provider Family Medicine; PCP Nurse Practitioner Family; Visit Provider Internal Medicine
DX: I13.0 Hypertensive heart and chronic kidney disease with heart failure and stage 1 through stage 4 chronic kidney disease, or unspecified chronic kidney disease (principal); I50.43 Acute on chronic combined systolic (congestive) and diastolic (congestive) heart failure; I21.A1 Myocardial infarction type 2; N17.9 Acute kidney failure, unspecified; E11.22 Type 2 diabetes mellitus with diabetic chronic kidney disease; N18.9 Chronic kidney disease, unspecified; I25.5 Ischemic cardiomyopathy; I25.2 Old myocardial infarction; I25.119 Atherosclerotic heart disease of native coronary artery with unspecified angina pectoris; E11.9 Type 2 diabetes mellitus without complications; E78.2 Mixed hyperlipidemia; Z89.411 Acquired absence of right great toe; E87.5 Hyperkalemia; I34.0 Nonrheumatic mitral (valve) insufficiency; D64.9 Anemia, unspecified; Z66 Do not resuscitate; Z79.02 Long term (current) use of antithrombotics/antiplatelets; Z79.84 Long term (current) use of oral hypoglycemic drugs; Z79.82 Long term (current) use of aspirin
CPT/HCPCS: 36415; 36416; 51702; 71045; 80048; 80053; 82962; 83605; 83735; 83880; 84145; 84484; 85025; 87040; 87086; 93005; 93325; 96365; 96366; 96372; 99285; C8924; J1250; J1644; J1815; J1940; J2405; J2543; J2550; J7030; J7050; Q9956